=== PATIENT | female | born 1950 | race Two or more races ===

== ENCOUNTER → 2016-09-12 | Outpatient (CLI) | payer OTHER ==
--- NOTE | 2016-09-12 18:26 | DX ---
Left hip. 2 views History: Osteoarthritis of left hip, M16.12. Findings: Hip joints have normal thickness. Articular surfaces are smooth. No fracture. Sacroiliac j oints and symphysis pubis are minimally degenerated. Abnormalities of the lumbar spine will be discus sed separately. Impression: Normal hips.
--- NOTE | 2016-09-12 18:27 | DX ---
Lumbar spine, 4 views History: Lower back pain and left hip pain for 6 weeks. Osteoarthritis, M47.897. Osteopenia, M85.80. 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 L5 has a large, sacral-style transverse process on the left. Intervertebral disk at L4-L5 shows moderate loss of height, with 4 mm of subluxation. Facet joints ar e severely degenerated at L4-L5 and L5-S1. No compression fracture is identified. Impression: Chronic disk degeneration, subluxation, and facet arthropathy at L4-L5.
== END ==
LOC: CIMAGING 17:50
PROVIDERS: ATTEND Family Medicine
DX: M51.36 Other intervertebral disc degeneration, lumbar region (principal); S33.140A Subluxation of L4/L5 lumbar vertebra, initial encounter; M12.88 Other specific arthropathies, not elsewhere classified, other specified site; M25.552 Pain in left hip
CPT/HCPCS: 72100-PO; 73502-PO

== ENCOUNTER → 2017-02-22 | Outpatient (CLI) | payer OTHER | LOC: CIMAGING 07:30 | PROVIDERS: ATTEND Family Medicine | DX: Z12.31 Encounter for screening mammogram for malignant neoplasm of breast (principal) | CPT/HCPCS: G0202 ==

== ENCOUNTER 2018-01-30 11:59 | Emergency (ER) | payer OTHER ==
[2018-01-30 12:16] VITALS: BP 134/47
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
[2018-01-30] MEDS ORDERED: ACETAMINOPHEN 500 MG TAB PO ONE (13:00)
[2018-01-30] MEDS ORDERED: IBUPROFEN 200 MG TAB PO ONE (13:06)
== END 2018-01-30 13:35 | disposition home or self-care (01) ==
LOC: CED 11:59
DX: S46.812A Strain of other muscles, fascia and tendons at shoulder and upper arm level, left arm, initial encounter (principal); J45.909 Unspecified asthma, uncomplicated; V49.49XA Driver injured in collision with other motor vehicles in traffic accident, initial encounter; Y92.410 Unspecified street and highway as the place of occurrence of the external cause; Y99.8 Other external cause status; Y93.89 Activity, other specified
CPT/HCPCS: 73521-PO

== ENCOUNTER → 2018-02-23 | Outpatient (CLI) | payer OTHER | LOC: CIMAGING 14:57 | PROVIDERS: ATTEND Family Medicine | DX: M79.662 Pain in left lower leg (principal); M25.562 Pain in left knee | CPT/HCPCS: 73562-PO; 73590-PO ==

== ENCOUNTER → 2018-02-26 | Outpatient (CLI) | payer OTHER | LOC: CIMAGING 08:07 | PROVIDERS: ATTEND Family Medicine | DX: Z12.31 Encounter for screening mammogram for malignant neoplasm of breast (principal) ==